=== PATIENT | male | born 1960 | race Caucasian/White ===

== ENCOUNTER 2016-04-13 09:57 | Inpatient (IN) ==
--- NOTE | 2016-04-13 10:28 | Emergency Department Note ---
Arrival - Arrival Chief Complaint: Abdominal / Flank Pain Stated Complaint: C/O TRANSFER FROM [facility] FOR GI BLEED ED Nursing Triage Note: C/O TRANSFER FROM [facility] FOR A UPPER AND LOWER GI BLEED. PT STATES THE BLOOD IS BRIGHT RED IN COLOR. Mode of Arrival: Stretcher Time Seen by Provider: 04/13/16 10:19 - History of Present Illness HPI Narrative: Patient 56-year-old white male transferred from [facility] for further evaluation of GI bleeding. Patient states is both vomited blood and had bloody stools. He told me this started 3 days ago has had several episodes of hematemesis today. Patient states it is bright blood when he vomited up and is not seeing any coffee ground. He is having some blood in the stool but is also having melena. He denies any previous history of GI bleeding. States he does have a history of alcoholism in the past and was a heavy drinker for over 30 years. He has never been told that he had cirrhosis. He denies any fever, chills or confusion. Allergies/Adverse Reactions: Allergies Allergy/AdvReac Type Severity Reaction Status Date / Time No Known Allergies Allergy Unverified 04/13/16 09:58 Home Medications: Home Medications Medication Instructions Recorded Confirmed Type Baclofen Tab [Lioresal] 20 mg PO TID 04/13/16 04/13/16 History Gabapentin 300 mg PO TID 04/13/16 04/13/16 History Sertraline [Zoloft] 100 mg PO DAILY 04/13/16 04/13/16 History traMADol TAB [Ultram] 50 mg PO BID 04/13/16 04/13/16 History Review of System - Review of System Constitutional: Present: weakness. Absent: chills, fever Eyes: Absent: pain, vision change Head/Ears/Nose/Throat: Absent: earache Respiratory: Absent: cough, respiratory distress, wheezing Cardiovascular: Absent: chest pain, palpitations, edema Gastrointestinal: Present: as per HPI, abdominal pain. Absent: nausea, vomiting , hematemesis, melena, hematochezia Genitourinary male: Absent: dysuria, frequency, hematuria Musculoskeletal: Absent: arm pain, back pain Skin: Absent: rash, lesions Neurological: Absent: headache, numbness, paresthesias Psychiatric: Absent: anxiety, depression Endocrine: Absent: polydipsia, polyuria Hematological/Lymphatic: Absent: easy bleeding, easy bruising Medical,Surgical,& Family Hx - Medical History Psychological: History of: Depression Musculoskeletal: History of: Back/Neck Problems (CHRONIC BACK PAIN) Other: History of: Miscellaneous Medical Problems (RIGHT ORBITAL FX) - Surgical History Surgical History: noncontributory - Family History Family History: noncontributory Family History: Reports;: Family Heart Disease - Social History Smoking Status: Former smoker Frequency of Alcohol Use: Occasionally Type of Drug Use: Marijuana Exam Vital Signs: Vital Signs Temperature 98.9 F 04/13/16 09:59 Pulse Rate 94 H 04/13/16 09:59 Respiratory Rate 20 04/13/16 09:59 Blood Pressure 147/93 04/13/16 09:59 O2 Sat by Pulse Oximetry 97 04/13/16 09:59 - General General appearance: alert, in no apparent distress - Head Head exam: Present: normocephalic - Eye Eye exam: Present: PERRL, EOMI - ENT ENT exam: Present: normal exam, normal oropharynx, mucous membranes moist - Neck Neck exam: Present: normal inspection, full ROM. Absent: meningismus - Chest Chest inspection: Present: normal inspection - Respiratory Respiratory exam: Present: normal lung sounds bilaterally - Cardiovascular Cardiovascular exam: Present: regular rate, normal rhythm, normal heart sounds - Abdominal Exam Abdominal exam: Present: soft, tenderness, normal bowel sounds. Absent: guarding, rebound - Rectal Exam Rectal exam: Present: heme (+) stool, black stool - exam: Present: normal inspection - Extremities Exam Extremities exam: Present: normal inspection - Back Exam Back exam: Present: normal inspection - Neurological Exam Neurological exam: Present: alert, oriented X3, CN II-XII intact. Absent: motor sensory deficit - Psychiatric Psychiatric exam: Present: normal affect - Skin Skin exam: Present: warm, dry Course Course Narrative: Patient was discussed with Dr. Demetria Gorman. Patient will be admitted to the service of Dr. Fontenot. Patient was hemodynamically stable here in the emergency room. Results - Labs CBC & BMP: 04/13/16 10:27 Lab Results: I have reviewed the patients labs Disposition Clinical Impression: GI hemorrhage Case discussed with: patient Disposition: Still a Patient Condition: Guarded Time of Disposition: 11:12
[2016-04-13 10:40] LABS: Basophils % 0.1 % (0.0-0.8); Hematocrit 31.9 VOL% (42.0-52.0); Hemoglobin 10.7 GM/DL (14.0-18.0); Immature Granulocytes % 0.9 %; Immature Granulocytes Absolute 0.14 #; Lymphocytes # 1.9 10*3/uL (1.4-4.0); Lymphocytes % 12.5 % (21.2-54.2); Mean Corpuscular HGB Conc 33.5 GM/DL (32-36); Mean Corpuscular Hemoglobin 29 PG (27-34); Mean Corpuscular Volume 87.6 FL (87-102); Mean Platelet Volume 10.4 FL (9.6-12.0); Monocytes # 1.3 10*3/uL (0.11-0.8); Monocytes % 8.1 % (1.7-12.7); Neutrophils # 12.2 10*3/uL (1.4-7.4); Neutrophils % 78.4 % (38.7-73.9); Platelet Count 272 10*3/uL (130-400); Red Blood Count 3.64 10*6/uL (3.8-5.5); White Blood Count 15.5 10*3/uL (4.5-13.71)
[2016-04-13 11:02] LABS: INR 1.1; PT Patient Result 11.4 SECS; Partial Thromboplastin Time 26.6 SECS (0-40)
[2016-04-13] MEDS ORDERED: ONDANSETRON 4 MG/2 ML VIAL IV PRN (13:18)
[2016-04-13] MEDS ORDERED: ACETAMINOPHEN 325 MG TABLET PO PRN (13:18)
--- NOTE | 2016-04-13 14:09 | Hospitalist History & Physical ---
Assessment and Plan (1) GI hemorrhage Status: Acute Assessment and plan: With this ongoing symptom and epigastric pain seems like patient has a upper GI bleeding source. Although patient has symptoms for about 2-3 days he is stable hemodynamically. Will monitor hemoglobin and hematocrit started on Protonix infusion consult GI for evaluation Will keep nothing by mouth for now and give IV fluid. History of alcohol abuse in the past but no known liver disease his PT/INR is within normal range I'll get liver function test in the morning Current Visit: Yes (2) Anemia Status: Acute Assessment and plan: Anemia on lab work but I cannot be certain of chronicity will resume his acute and will monitor Current Visit: Yes History of Present Illness Chief complaint: hematemesis and hematochezia History of present illness: Mr. Gann is a 56 year old male with history of follow-up chronic back and neck problem and depression. He was transferred from the [facility] he presented there with the episodes of hematemesis and hematochezia started Thursday. According to the patient he has multiple episodes of passing fresh blood and some clots from rectum with king and hemetemesis and vomiting same. He has some Epigastric and left upper quadrant pain along with that. No history of past medical epigastric ulcer disease or known liver disease. He did have a history of 4 heavy drinking until 3 years ago but has now quit. He he never had a screening colonoscopy. There is no history of weight loss but he admits having some problem with the swallowing for about a year he was a smoker but quit about 6 months ago. There is no history of NSAID use. There is no history of fever or chills Home Medications Medication Instructions Recorded Confirmed Type Baclofen Tab [Lioresal] 20 mg PO TID 04/13/16 04/13/16 History Gabapentin 300 mg PO TID 04/13/16 04/13/16 History Sertraline [Zoloft] 100 mg PO DAILY 04/13/16 04/13/16 History traMADol TAB [Ultram] 50 mg PO BID 04/13/16 04/13/16 History Allergies Allergy/AdvReac Type Severity Reaction Status Date / Time No Known Allergies Allergy Unverified 04/13/16 09:58 Medical,Surgical,& Family Hx - Medical History Psychological: History of: Depression Musculoskeletal: History of: Back/Neck Problems (CHRONIC BACK PAIN) Other: History of: Miscellaneous Medical Problems (RIGHT ORBITAL FX) - Surgical History Surgical History: noncontributory Orthopedic Surgeries: Surgical HX of;: Spinal Surgery - Family History Family History: Reports;: Family Heart Disease - Social History Smoking Status: Former smoker Have you smoked in the last 12 months: Yes Frequency of Alcohol Use: Occasionally (patient will heavy alcohol drinker until about 3 years ago not drinks about 1 drink per day) Type of Drug Use: Marijuana 12 point system: reviewed and no additional remarkable complaints except as stated - Constitutional Constitutional: Absent: chills, fever(s), increased appetite, weight loss - EENT Nose, mouth and throat: Present: dysphagia. Absent: epistaxis, nasal congestion - Cardiovascular Cardiovascular: Absent: chest pain with activity, dyspnea - Respiratory Respiratory: Absent: cough, dyspnea, wheezing - Gastrointestinal Gastrointestinal: Present: as per HPI, abdominal pain - Genitourinary Genitourinary: Absent: dysuria, nocturia - Musculoskeletal Musculoskeletal: Present: as per HPI, back pain (chronic) - Neurological Neurological: Absent: abnormal gait, abnormal speech, behavioral changes, memory loss - Psychiatric Psychiatric: Present: as per HPI, depression - Endocrine Endocrine: Absent: polydipsia, polyphagia, polyuria Exam - Constitutional Vitals: Period Temp Pulse Resp BP Sys/Gayle Pulse Ox Last 24 Hr 87 18 131/81 94 General appearance: normal weight, no acute distress - Head Head exam: Present: normal inspection, normocephalic, atraumatic - Eye Eye exam: Present: EOMI Pupils: Present: MARCELO, normal accommodation - ENT ENT exam: Present: normal exam, normal oropharynx - Respiratory Respiratory exam: Present: clear to auscultation bilaterally (equal air entry bilaterally). Absent: rales, rhonchi - Cardiovascular Cardiovascular exam: Present: bradycardia, regular rate and rhythm. Absent: JVD , tachycardia - GI/Abdominal GI/Abdominal exam: Present: normal bowel sounds, tenderness (mild discomfort/ tenderness in epigastrium and left side of the abdomen), soft. Absent: distended, rebound - Neurological Exam Neurological exam: Present: alert, oriented X3, motor sensory deficit (no gross motor deficit) - Psychiatric Psychiatric exam: Present: normal affect, normal mood - Skin Skin exam: Present: normal color Results - Labs CBC & BMP: 04/13/16 10:27 Lab Results: I have reviewed the past 24 hour labs Quality Measures - VTE Contraindication to Pharmacological VTE Prophylaxis: Active Bleeding
[2016-04-13] MEDS: PANTOPRAZOLE 40 MG VIAL IV SCH ×2 (14:17→21:46)
[2016-04-13] MEDS: DEXTROSE 5% NACL 0.45% 1,000 ML IV SCH (14:33)
--- NOTE | 2016-04-13 16:26 | Gastrointestinal Consult Note ---
Assessment and Plan (1) Acute posthemorrhagic anemia Status: Acute Assessment and plan: This patient has a drop in his hematocrit and a history of both hematemesis and melena with a fairly brisk bleed as evidence by maroon stool coming from the rectum. We do not know if he has a history of varices but this is certainly a possibility given his alcohol intake. If he becomes unstable or have discussed with the nurse sending him to the ICU tonight and putting him on octreotide drip to control the pressure in his splanchnic vasculature. Interestingly the patient's CBC does not seem to show evidence of cirrhosis i.e. no thrombocytopenia no increased MCV. In this patient's dysphagia and cut back in his alcohol intake remain concerned this may be a bleeding vessel in the cancer of the esophagus or proximal stomach. We will assess further after upper endoscopy tomorrow. Current Visit: Yes (2) Dysphagia, pharyngoesophageal Status: Acute Assessment and plan: We will plan on doing a dilation depending on the findings at endoscopy, we may have to hold back if there are varices that required banding. If cancer is present we will simply take biopsies. Current Visit: Yes (3) Upper GI hemorrhage Status: Acute Assessment and plan: The differential diagnosis of this patient's blood loss includes peptic ulcer disease erosive gastritis/esophagitis/duodenitis esophageal and gastric cancer due for his lesions and gastric antral vascular ectasia/AVMs. The patient is understanding the risks involved with endoscopy in which include but are not limited to bleeding, infection, perforation, cardiac and pulmonary compromise. Upper endoscopy is to take place tomorrow hopefully between 7 and 9 o'clock a.m. We will cover the patient with Protonix 40 mg IV twice a day in the interim. Current Visit: Yes (4) Alcoholism Status: Acute Assessment and plan: Patient states that he has cut back his alcohol intake significantly but still describes approximately 16 ounces of wine per day. He may be minimizing, we will need to watch him closely for withdrawal seizures and delirium tremens over the next 48 hours. Current Visit: Yes History of Present Illness Chief complaint: coffee-ground emesis, alcoholism, maroon stools/melena History of present illness: Mr. Gann is a 56 year old male who presents in transfer from [facility] where he was seen for hematemesis and passage of maroon/black stools. He denies use of NSAIDs but admits to heavy alcohol use for starting with beer many years ago and then switching over to whiskey perhaps a quarter of a gallon per week, and in the last several years as switched over to wine and describes his intake is approximately 16 ounces per day. 3 days ago the patient started having increasing nausea and vomiting with passage of black stools with vomiting that seemed to intensify on Thursday with both coffee-ground and bright red in the vomitus. When asked how much blood was in the toilet he said "a lot" but could not quantify further. The patient has had dysphagia for many years and recently this has intensified as well where his food used to feel like it was stuck retrosternally sometimes this feels like it stuck all the way up in his throat. He does have to vomit occasionally get rid of food. He does not have a prior history of GI bleeding, he states that his by mouth intake of alcohol has decreased a great deal over the last 3 years. He has never had a screening colonoscopy or other GI evaluation. Patient has been a smoker for over 40 years but states that he discontinued this proximally 6 months ago. There is no family history of colorectal cancer or polyps that he knows of. His Susan is at the bedside and offers verification of the patient's statements. Despite having nausea and vomiting over the last several days with coffee-ground emesis and maroon stools patient's hematocrit today is 31.9 with a hemoglobin of 10.7. MCV is 87.6 and platelets are actually normal at 272 speaking against cirrhosis as a potential etiology. INR is also within normal limits at 1.1, the patient has not been to [facility] before we do not have old records of his previous hematocrits. 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 Home Medications Medication Instructions Recorded Confirmed Type Baclofen Tab [Lioresal] 20 mg PO TID 04/13/16 04/13/16 History Gabapentin 300 mg PO TID 04/13/16 04/13/16 History Sertraline [Zoloft] 100 mg PO DAILY 04/13/16 04/13/16 History traMADol TAB [Ultram] 50 mg PO BID 04/13/16 04/13/16 History Allergies Allergy/AdvReac Type Severity Reaction Status Date / Time No Known Allergies Allergy Unverified 04/13/16 09:58 Medical,Surgical,& Family Hx - Medical History Psychological: History of: Depression Musculoskeletal: History of: Back/Neck Problems (CHRONIC BACK PAIN) Other: History of: Miscellaneous Medical Problems (RIGHT ORBITAL FX) - Surgical History Orthopedic Surgeries: Surgical HX of;: Spinal Surgery - Family History Family History: Reports;: Family Heart Disease, Family Hypertension (mother) - Social History Smoking Status: Former smoker Frequency of Alcohol Use: Occasionally Type of Drug Use: Marijuana Review of systems: Constitutional: Denies fever, chills, but positive for nausea, and vomiting Eyes: Denies dry eyes, and scleral icterus HENT: Denies headaches Cardiovascular: She does admit to some acute chest pain but no claudication Respiratory: Denies shortness of breath, wheezing, and difficulty breathing, denies cough Gastrointestinal: As noted in the HPI Genitourinary: Denies dysuria and hematuria Neurologic: Denies vision loss, and loss of sensation Musculoskeletal: Denies joint swelling, but does have some joint stiffness, and muscular weakness Psychiatric: Denies depression and sanjeev symptoms, he does have a history of alcoholism Heme-Lymph: Denies easy bruising, lymph node enlargement or tenderness, night sweats, excessive bleeding Allergies-immunologic: Denies pruritus and rhinorrhea Exam - Constitutional Vitals: Period Temp Pulse Resp BP Sys/Gayle Pulse Ox Last 24 Hr 97.8 F 87-88 18-22 131-170/76-81 94-96 Exam: Constitutional: Well-developed, well-nourished, alert, and in no acute distress Head and face: Head: Normocephalic atraumatic Eyes: Conjunctiva without injection, no gross scleral icterus, pupils equal and round bilaterally Ears: Intact to conversation in both ears Nose: External appearance is normal, nares patent Mouth: Oral mucous membranes moist without erythema, dentition noted to be sparse with a few looser teeth in the upper mid arch without erosion Neck: Normal appearance, no masses or tenderness, trachea midline Thyroid: Gland midline and appropriate size for age Respiratory: Normal respiratory effort, clear to auscultation without wheezes, rhonchi or rales Cardiovascular: Regular rate and rhythm, normal S1, S2, the exam is without rubs, murmurs or gallops. Gastrointestinal: Mildly tender in the bilateral periumbilical regions laterally to palpation, normal active bowel sounds, tone normal without rigidity or guarding, no masses present, no hepatomegaly, no spleen tip felt. No rectal exam obtained. Lymphatic: Neck without adenopathy, axilla without lymphadenopathy present Musculoskeletal: Right and left lower extremities without evidence of edema Skin and subcutaneous tissue: No rashes or ulcerations noted, normal skin turgor, digits and nails without clubbing/cyanosis/deformities. Patient has a tattoo on his left chest with his 's name on it "Susan" Neurologic: The patient is grossly oriented to person place and time, cranial nerves show tongue movements are normal with normal tongue extrusion midline, light touch sensation is intact. No gross evidence of asterixis, I do not see any telangiectasias or Dupuytren's contractures. Psychiatric: No hallucinations or delusions are present, does not appear depressed Results - Labs CBC & BMP: 04/13/16 10:27 Quality Measures - VTE Contraindication to Pharmacological VTE Prophylaxis: Active Bleeding
[2016-04-13 17:27] LABS: Hematocrit 31.1 VOL% (42.0-52.0); Hemoglobin 10.4 GM/DL (14.0-18.0)
[2016-04-14] MEDS: DEXTROSE 5% NACL 0.45% 1,000 ML IV SCH ×2 (02:15→14:13)
[2016-04-14 06:47] LABS: Hematocrit 30.5 VOL% (42.0-52.0); Hemoglobin 10.2 GM/DL (14.0-18.0)
[2016-04-14 06:48] LABS: Basophils % 0.2 % (0.0-0.8); Eosinophils % 0.2 % (0.00-10.9); Hematocrit 30.5 VOL% (42.0-52.0); Hemoglobin 10.1 GM/DL (14.0-18.0); Immature Granulocytes % 0.8 %; Immature Granulocytes Absolute 0.08 #; Lymphocytes # 2.3 10*3/uL (1.4-4.0); Lymphocytes % 23.2 % (21.2-54.2); Mean Corpuscular HGB Conc 33.1 GM/DL (32-36); Mean Corpuscular Hemoglobin 29 PG (27-34); Mean Corpuscular Volume 88.7 FL (87-102); Mean Platelet Volume 10.3 FL (9.6-12.0); Monocytes # 1.1 10*3/uL (0.11-0.8); Monocytes % 11.3 % (1.7-12.7); Neutrophils # 6.5 10*3/uL (1.4-7.4); Neutrophils % 64.3 % (38.7-73.9); Platelet Count 253 10*3/uL (130-400); Red Blood Count 3.44 10*6/uL (3.8-5.5); Red Cell Distribution Width 15.1 % (9.3-17.3); White Blood Count 10.1 10*3/uL (4.5-13.71)
[2016-04-14 07:16] LABS: Alanine Aminotransferase 20 U/L (16-61); Albumin 3.2 G/DL (3.4-5.0); Albumin 3.3 G/DL (3.4-5.0); Alkaline Phosphatase 72 U/L (45-117); Aspartate Amino Transferase 11 U/L (0-37); Bilirubin,Direct < 0.1 MG/DL (0.0-0.20); Bilirubin,Indirect 0.7 MG/DL (0.0-1.0); Bilirubin,Total 0.7 MG/DL (0.2-1.0); Calcium 8.4 MG/DL (8.5-10.1); Osmolality,Calculated 282.1 MOS/KG (273-304); Potassium 3.2 MMOL/L (3.5-5.1); Total Protein 5.9 G/DL (6.4-8.3)
[2016-04-14] MEDS ORDERED: PROPOFOL 200 MG/20 ML VIAL IV ONE (08:14)
[2016-04-14] MEDS ORDERED: LIDOCAINE 1% 5 ML VIAL ONE (08:14)
--- NOTE | 2016-04-14 08:32 | Operative Note ---
Date of procedure: 04/14/16 Pre-op diagnosis: hematemesis, melena, decreased hematocrit, 30.5% now Post-op diagnosis: other (This patient has a duodenal ulcer which likely has resulted in his melena, mild patchy gastritis was noted, LA class D erosive esophagitis 6 cm also noted and potentially a source of bleeding.) Procedure: PROCEDURE: Esophagogastroduodenoscopy (EGD) with cold biopsy for pathology REFERRING PHYSICIAN: Dr. Eduardo Fontenot M.D. INDICATIONS: Hematemesis coffee-ground emesis, melena, epigastric tenderness , decrease in hematocrit to 30.5% this morning without transfusion. The prior H& P was reviewed and interrim changes are as noted: No change from GI consultation yesterday ENDOSCOPIST: Cole Marie MD ENDOSCOPE: Olympus Video 100 System upper endoscope ASA CLASS: 3 EXAM: CV: regular rate and rhythm Respiratory: Clear without wheezes Abdominal: active bowel sounds MEDICATION: Per nursing anesthesia protocol, see their notes PROCEDURE: After discussion of the potential risks and benefits of upper endoscopy, the informed consent was obtained. The patient was then placed in the left lateral decubitus position where sedation was achieved as noted above. Esophageal intubation was performed without difficulty, and the endoscope was advanced through the esophagus, stomach and duodenum. A slow withdrawal was then performed with retroflexion in the stomach for careful inspection of the incisura angularis, fundus and cardia. The scope was then returned to a neutral position and withdrawn through the esophagus. The patient tolerated the procedure well and without complication. BIOPSIES: Gastric antrum/body PHOTOGRAPHS: Obtained FINDINGS: Hypopharynx and Larynx: Normal Esohagoscopy Upper and middle thirds: This patient has a erosive esophagitis LA class D between 29 and 35 centimeters. Lower third LA class D erosive esophagitis, 29-35 centimeters Esophogastric junctions: No gross evidence of stricturing, erosive esophagitis as noted above, no gross evidence of Jensen's. Gastroscopy: Cardia/Fundus: There is a 5 cm hiatal hernia noted here, minimal inflammation Body: Mild patchy gastritis, biopsied Antrum and pylorus mild patchy gastritis, biopsied Duodenoscopy: Bulb erosive duodenitis with a 1 cm ulcer noted posteriorly Second and third portions: Normal IMPRESSION: This patient has a duodenal ulcer which likely has resulted in his melena, mild patchy gastritis was noted, LA class D erosive esophagitis 6 cm also noted and potentially a source of bleeding. RECOMMENDATIONS: Follow up for biopsy results in 1-2 weeks by phone [phone] Continue anti-gastroesophageal reflux measures (avoid carbonated and acidic beverages, avoid eating within 2 hours of bedtime, avoid tight fitting clothing , and elevate the front bed posts 6 inches prior to sleeping. Protonix 40 mg by mouth twice a day, given the patient's esophagitis he may need this indefinitely. Avoid NSAIDs, take Tylenol for headaches We will treat Helicobacter pylori if found on pathology. Cole Marie MD COPY TO: Dr. Eduardo Fontenot M.D. Anesthesia: MAC Surgeon / Physician: Cole Marie Estimated blood loss: minimal Specimens: other Condition: stable Disposition: post procedure unit Results - Labs CBC & BMP: 04/14/16 06:21 04/14/16 06:21 Discharge Plan - Discharge Medications No Action Sertraline [Zoloft] 100 mg PO DAILY Gabapentin 300 mg PO TID traMADol TAB [Ultram] 50 mg PO BID Baclofen Tab [Lioresal] 20 mg PO TID - Follow Up or Referral - Forms/Instructions
--- NOTE | 2016-04-14 08:35 | Gastrointestinal Progress Note ---
Assessment and Plan (1) Acute posthemorrhagic anemia Status: Acute Assessment and plan: This patient has a drop in his hematocrit and a history of both hematemesis and melena with a fairly brisk bleed as evidence by maroon stool coming from the rectum. We do not know if he has a history of varices but this is certainly a possibility given his alcohol intake. If he becomes unstable or have discussed with the nurse sending him to the ICU tonight and putting him on octreotide drip to control the pressure in his splanchnic vasculature. Interestingly the patient's CBC does not seem to show evidence of cirrhosis i.e. no thrombocytopenia no increased MCV. In this patient's dysphagia and cut back in his alcohol intake remain concerned this may be a bleeding vessel in the cancer of the esophagus or proximal stomach. We will assess further after upper endoscopy tomorrow. 04/14/16--findings at endoscopy are as follows: This patient has a duodenal ulcer which likely has resulted in his melena, mild patchy gastritis was noted, LA class D erosive esophagitis 6 cm also noted and potentially a source of bleeding. He will need Protonix 40 mg twice a day and we will await the biopsy results and call him with these when they become available. His hematocrit is stable and the patient can be discharged at this time. If he requires Helicobacter pylori treatment we'll write for this after he is left the hospital. He can follow-up with me as needed in the office. Current Visit: Yes (2) Dysphagia, pharyngoesophageal Status: Acute Assessment and plan: We will plan on doing a dilation depending on the findings at endoscopy, we may have to hold back if there are varices that required banding. If cancer is present we will simply take biopsies. 04/14/16--this patient's dysphagia is likely due to the LA class D erosive esophagitis seen on upper endoscopy. It did not require dilation. It should improve over time with the Protonix twice a day. He will likely need this lifelong. Current Visit: Yes (3) Upper GI hemorrhage Status: Acute Assessment and plan: The differential diagnosis of this patient's blood loss includes peptic ulcer disease erosive gastritis/esophagitis/duodenitis esophageal and gastric cancer due for his lesions and gastric antral vascular ectasia/AVMs. The patient is understanding the risks involved with endoscopy in which include but are not limited to bleeding, infection, perforation, cardiac and pulmonary compromise. Upper endoscopy is to take place tomorrow hopefully between 7 and 9 o'clock a.m. We will cover the patient with Protonix 40 mg IV twice a day in the interim. 04/14/16--see above Current Visit: Yes (4) Alcoholism Status: Acute Assessment and plan: Patient states that he has cut back his alcohol intake significantly but still describes approximately 16 ounces of wine per day. He may be minimizing, we will need to watch him closely for withdrawal seizures and delirium tremens over the next 48 hours. 04/14/16--the patient needs to discontinue drinking entirely at this point. Current Visit: Yes Gastroenterology - PN: Subj Interval history: No new complaints Exam (Progress Note) - Constitutional Vitals: Period Temp Pulse Resp BP Sys/Gayle Pulse Ox Last 24 Hr 97.1 F-98.3 F 61-88 18-22 124-170/63-90 94-99 General appearance: no acute distress - Eye Eye exam: Present: EOMI Pupils: Present: MARCELO - Respiratory Respiratory exam: Present: clear to auscultation bilaterally - Cardiovascular Cardiovascular exam: Present: regular rate and rhythm - GI/Abdominal GI/Abdominal exam: Present: normal bowel sounds, tenderness, soft. Absent: distended, rebound (epigastric tenderness) - Neurological Exam Neurological exam: Present: alert, oriented X3 - Psychiatric Psychiatric exam: Present: normal affect, normal mood - Skin Skin exam: Present: warm Results - Labs CBC & BMP: 04/14/16 06:21 04/14/16 06:21
--- NOTE | 2016-04-14 08:37 | Anesthesia ---
Anesthesia Post OP - Post Ansesthetic Evaluation Patient seen in post op: Yes Resp: within normal limits CV: within normal limits Mental: within normal limits Temp: within normal limits [id number]: within normal limits Nausea and Vomiting: within normal limits Pain: within normal limits
[2016-04-14] MEDS: PANTOPRAZOLE 40 MG VIAL IV SCH (09:43)
[2016-04-14] MEDS ORDERED: POTASSIUM CHLORIDE 20 MEQ TABLET PO ONE (14:12)
--- NOTE | 2016-04-14 14:12 | Discharge Summary ---
Hospital Course - Hospital Course Hospital Course: Mr Gann came with UGI bleeding and melena. He had serial H&H that were stable with hgb of 10. He had EGD today that shows esophagitis and duodenal ulcer without active bleeding. Dr Mee ahumada is the [facility]. He recommends protonix 40mg BID indefinitely, and follow up by phone in 2 weeks for biopsy results. He feels well and has tolerated a diet. He will be discharged home with scheduled PCP follow up. Prior to discharge he will receive a dose of potassium. He has cut back on his alcohol intake recently and we have advised him to stop altogether. - Time spent with patient Time with patient DS: Less than 30 minutes Diagnosis - Discharge Diagnosis (1) Anemia Status: Chronic (2) Upper GI hemorrhage Status: Acute (3) Alcoholism Status: Chronic Specialty Discharge - Follow Up or Referrals Follow up with: Your, PCP [Other] (in one week ) Cole Marie MD [Physician] - (prn ) Discharge Plan - Discharge Data Disposition: Disch To Home/Self Care Condition at Discharge: Stable Discharge Diet: advance to your usual diet Activity: resume usual activities as tolerated - Discharge Medications New Pantoprazole Tab [Protonix Tab] 40 mg PO BID #60 tablet Continue Sertraline [Zoloft] 100 mg PO DAILY Gabapentin 300 mg PO TID traMADol TAB [Ultram] 50 mg PO BID Baclofen Tab [Lioresal] 20 mg PO TID - Follow Up or Referral - Forms/Instructions Exam - Constitutional Vitals: Period Temp Pulse Resp BP Sys/Gayle Pulse Ox Last 24 Hr 97.1 F-98.3 F 61-88 18-23 124-170/63-90 96-100 General appearance: normal weight, no acute distress - Head Head exam: Present: normocephalic, atraumatic - Eye Eye exam: Present: EOMI. Absent: scleral icterus - Respiratory Respiratory exam: Present: clear to auscultation bilaterally - Cardiovascular Cardiovascular exam: Present: regular rate and rhythm - GI/Abdominal GI/Abdominal exam: Present: normal bowel sounds, soft. Absent: tenderness - Extremities Exam Extremities exam: Absent: edema - Neurological Exam Neurological exam: Present: alert, oriented X3 - Skin Skin exam: Present: warm, dry Discharge Results Procedures and tests throughout hospitalization: Pending Orders 04/14/16 16:45 Hemoglobin and Hematocrit Q12H 01/24/17 04:45 Hemoglobin and Hematocrit Q12H Labs on day of discharge: Labs from last 24 hours 04/14/16 04/14/16 04/14/16 06:21 06:21 06:21 WBC RBC Hgb 10.2 L Hct 30.5 L MCV MCH MCHC RDW Plt Count MPV Neut % (Auto) Lymph % (Auto) Collin % (Auto) Eos % (Auto) Baso % (Auto) Neut # (Auto) Lymph # (Auto) Collin # (Auto) Eos # (Auto) Baso # (Auto) Immature Gran % Nucleated RBC % Immature Gran # Nucleated RBCs # Sodium 142 Potassium 3.2 L Chloride 107 Carbon Dioxide 25 Anion Gap 13.2 BUN 10 Creatinine 0.70 GFR Calculation 109 BUN/Creatinine Ratio 14.00 Glucose 115 H Calculated Osmolality 282.1 Calcium 8.4 L Total Bilirubin 0.80 0.70 Direct Bilirubin < 0.1 Indirect Bilirubin 0.7 AST 11 11 ALT 20 17 Alkaline Phosphatase 72 69 Total Protein 6.0 L 5.9 L Albumin 3.2 L 3.3 L Globulin 2.6 Albumin/Globulin Ratio 1.2 04/14/16 04/13/16 06:21 17:07 WBC 10.1 D RBC 3.44 L Hgb 10.1 L 10.4 L Hct 30.5 L 31.1 L MCV 88.7 MCH 29 MCHC 33.1 RDW 15.1 Plt Count 253 MPV 10.3 Neut % (Auto) 64.3 Lymph % (Auto) 23.2 Collin % (Auto) 11.3 Eos % (Auto) 0.2 Baso % (Auto) 0.2 Neut # (Auto) 6.5 Lymph # (Auto) 2.3 Collin # (Auto) 1.1 H Eos # (Auto) 0.0 Baso # (Auto) 0.0 Immature Gran % 0.8 Nucleated RBC % 0.0 Immature Gran # 0.08 Nucleated RBCs # 0.00 Sodium Potassium Chloride Carbon Dioxide Anion Gap BUN Creatinine GFR Calculation BUN/Creatinine Ratio Glucose Calculated Osmolality Calcium Total Bilirubin Direct Bilirubin Indirect Bilirubin AST ALT Alkaline Phosphatase Total Protein Albumin Globulin Albumin/Globulin Ratio DS: Provider Date of admission: 04/13/16 13:18 Primary care physician: . No PCP Attending physician on admission: Eduardo Fontenot M.D. Consults: 04/13/16 13:23 Consult to Physician [CONS] Routine Comment: pt with GI bleeding hemetemesis and hematochezia Consulting Provider: Cole Marie Consult to Specialist Group: Gastroenterology When should Consulting Provider be notified: Now 04/13/16 13:55 Consult to Pharmacy [CONS] Routine Reason for Pharmacy Consult: Adjust Meds Renal Funct 04/13/16 16:40 Consult to Anesthesiology [CONS] Routine Consulting Provider: Reason for Anesthesiology: Pre-op Clearance Discharging clinician: Calli Arenas MD
[2016-04-14 15:26] VITALS: BP 134/76
--- NOTE | 2016-04-15 12:44 | Pathology Report from [facility] ---
ACCESSION # : [id number] PATIENT NAME : Justin Gann ORDERING DR : Cole Marie MD CLINICAL HX: GI bleed POST-OP DX: Same SPECIMEN INFO: GABRIEL GROSS DESCRIPTION: The specimen is received in formalin labeled with the patient 's name and consists of three pink-granados mucosal tissue fragments measuring 1.4 x 0.3 cm. Submitted in one cassette. DIAGNOSIS FOR JUSTIN GANN: GASTRIC ANTRAL BIOPSY: Chronic gastritis. No evidence of malignancy. Special stain for H. pylori-like organisms is NEGATIVE. SERVICE DATE: 04/14/2016 REPORT DATE: 04/15/2016 PATHOLOGIST: Bert Shepard III, M.D. [facility]
== END 2016-04-14 15:35 | disposition home or self-care (01) | DRG 378 ==
LOC: N.ED 09:57 → N.EDINP 13:18 → N.4E 14:03
PROVIDERS: ADMIT Internal Medicine; ATTEND Internal Medicine